=== PATIENT | male | born 1975 | race Caucasian/White ===

== ENCOUNTER 2018-12-15 20:16 | Inpatient (IN) | payer OTHER ==
[~2018-12-15] VITALS: Ht 182.9 cm; Wt 97.5 kg
[2018-12-15 20:40] LABS: BILIRUBIN,URINE NEGATIVE (NEG); CLARITY,URINE CLEAR; COLOR,URINE YELLOW; NITRITE,URINE NEGATIVE (NEG); PH,URINE 5.5; PROTEIN,URINE 30 mg/dL (NEG-TRACE)
[2018-12-15] MEDS ORDERED: TAMSULOSIN 0.4 MG CAP.ER.24H. PO ONE (21:00)
[2018-12-15] MEDS ORDERED: ONDANSETRON PF 4 MG/2 ML VIAL. IV ONE (21:00)
[2018-12-15] MEDS ORDERED: MORPHINE SULFATE 10 MG/ML VIAL. IV ONE (21:00)
[2018-12-15 21:07] LABS: BASO # 0.1 x10^3/uL (0.0-0.2); BASO % 1 % (0-3); EOS # 0.1 x10^3/uL (0.0-0.7); EOS % 1 % (0-3); HEMATOCRIT 45.8 % (39.0-53.0); HEMOGLOBIN 15.3 g/dL (13.0-17.5); LYMPH # 2.7 x10^3/uL (1.0-4.8); LYMPH % 23 % (24-48); MEAN CORPUSCULAR HEMOGLOBIN 29 pg (25-35); MEAN CORPUSCULAR HGB CONC 33 g/dL (31-37); MEAN CORPUSCULAR VOLUME 86 fL (79-100); MONO # 0.8 x10^3/uL (0.0-1.1); MONO % 7 % (0-9); NEUT # 7.7 x10^3uL (1.8-7.7); NEUT % 68 % (31-73); PLATELET COUNT 296 x10^3/uL (140-400); RED BLOOD COUNT 5.33 x10^6/uL (4.30-5.70); RED CELL DISTRIBUTION WIDTH 13.9 % (11.5-14.5); WHITE BLOOD COUNT 11.4 x10^3/uL (4.0-11.0)
[2018-12-15 21:16] LABS: CALCIUM 9.3 mg/dL (8.5-10.1); CREATININE 1.3 mg/dL (0.7-1.3); GFR 60.8; POTASSIUM 3.2 mmol/L (3.5-5.1)
--- NOTE | 2018-12-15 21:20 | PHYS DOC ---
Past Medical History Past Medical History: Kidney Stone (RICHARD MADDEN APRN) Past Surgical History: No Surgical History (RICHARD MADDEN APRN) Alcohol Use: None Drug Use: None (RICHARD MADEDN APRN) Adult General Chief Complaint Chief Complaint: FLANK PAIN HPI HPI Patient is a 43 year old male with history of kidney stones who presents to the ED today complaining of 8 out of 10 sharp constant right flank pain with nausea that began this afternoon. Patient denies any hematuria. Denies any vomiting. Denies any urgency frequency dysuria. Patient states this feels like the last time he had a kidney stone approximately 10 years ago. Patient is writhing in pain. (RICHARD MADDEN APRN) Review of Systems Review of Systems Constitutional: Denies fever or chills [] Eyes: Denies change in visual acuity, redness, or eye pain [] HENT: Denies nasal congestion or sore throat [] Respiratory: Denies cough or shortness of breath [] Cardiovascular: No additional information not addressed in HPI [] GI: Reports nausea. Denies abdominal pain, vomiting, bloody stools or diarrhea [] : Reports right flank pain. Denies dysuria or hematuria [] Musculoskeletal: Denies back pain or joint pain [] Integument: Denies rash or skin lesions [] Neurologic: Denies headache, focal weakness or sensory changes [] All other systems were reviewed and found to be within normal limits, except as documented in this note. (RICHARD MADDEN APRN) Current Medications Current Medications Current Medications Medications (Trade) Dose Ordered Sig/Yoli Start Time Stop Time Status Last Admin Dose Admin Hydromorphone HCl (Dilaudid) 1 mg 1X ONCE 12/15/18 22:30 12/15/18 22:31 DC 12/15/18 22:28 1 MG Ketorolac Tromethamine (Toradol 30mg Vial) 30 mg 1X ONCE 12/15/18 21:30 12/15/18 21:31 DC 12/15/18 21:16 30 MG Morphine Sulfate (Morphine Sulfate) 5 mg 1X ONCE 12/15/18 21:00 12/15/18 21:04 DC 12/15/18 21:03 5 MG Ondansetron HCl (Zofran) 4 mg 1X ONCE 12/15/18 21:00 12/15/18 21:04 DC 12/15/18 21:03 4 MG Potassium Chloride (KCl Oral Soln) 40 meq 1X ONCE 12/15/18 21:30 12/15/18 21:31 DC 12/15/18 22:31 40 MEQ Potassium Chloride (Klor-Con) 40 meq 1X ONCE 12/15/18 22:00 12/15/18 22:01 Cancel Sodium Chloride 1,000 ml @ 1,000 mls/hr 1X ONCE 12/15/18 21:30 12/15/18 22:29 DC 12/15/18 21:26 1,000 MLS/HR Tamsulosin HCl (Flomax) 0.4 mg 1X ONCE 12/15/18 21:00 12/15/18 21:04 DC 12/15/18 21:02 0.4 MG (FER ROSE DO) Allergies Allergies Allergies Coded Allergies Type Severity Reaction Last Updated Verified No Known Drug Allergies 12/15/18 No (FER ROSE DO) Physical Exam Physical Exam Constitutional: Well developed, well nourished, no acute distress, non-toxic appearance. [] HENT: Normocephalic, atraumatic, bilateral external ears normal, oropharynx moist, no oral exudates, nose normal. [] Eyes: PERRLA, EOMI, conjunctiva normal, no discharge. [] Neck: Normal range of motion, no tenderness, supple, no stridor. [] Cardiovascular:Heart rate regular rhythm, no murmur [] Lungs & Thorax: Bilateral breath sounds clear to auscultation [] Abdomen: Bowel sounds normal, soft, patient is guarding the right lower quadrant , moderate tenderness on palpation of the right lower quadrant positive psoas sign, positive obturator sign, no masses, no pulsatile masses. [] Skin: Warm, dry, no erythema, no rash. [] Back: No tenderness, no CVA tenderness. [] Extremities: No tenderness, no cyanosis, no clubbing, ROM intact, no edema. [] Neurologic: Alert and oriented X 3, normal motor function, normal sensory function, no focal deficits noted. [] Psychologic: Patient is writhing in pain (MUTUNGA,RICHARD [employer]OR [employer]) Current Patient Data Vital Signs Vital Signs Date Time Temp Pulse Resp B/P (MAP) Pulse Ox O2 Delivery O2 Flow Rate FiO2 12/15/18 22:28 Room Air 12/15/18 22:23 42 227/97 (140) 93 12/15/18 20:41 97.7 21 97.7 (FER ROSE DO) Lab Values Laboratory Tests Test 12/15/18 20:29 12/15/18 20:55 Urine Collection Type Void Urine Color Yellow Urine Clarity Clear Urine pH 5.5 Urine Specific [place] >=1.030 Urine Protein 30 mg/dL (NEG-TRACE) Urine Glucose (UA) Negative mg/dL (NEG) Urine Ketones (Stick) 15 mg/dL (NEG) Urine Blood Trace (NEG) Urine Nitrite Negative (NEG) Urine Bilirubin Negative (NEG) Urine Urobilinogen Dipstick 1.0 mg/dL (0.2 mg/dL) Urine Leukocyte Esterase Negative (NEG) Urine RBC Occ /HPF (0-2) Urine WBC Occ /HPF (0-4) Urine Squamous Epithelial Cells Few /LPF Urine Bacteria 0 /HPF (0-FEW) Urine Hyaline Casts Occasional /HPF Urine Mucus Mod /LPF Urine Opiates Screen Neg (NEG) Urine Methadone Screen Neg (NEG) Urine Barbiturates Neg (NEG) Urine Phencyclidine Screen Neg (NEG) Urine Amphetamine/Methamphetamine Neg (NEG) Urine Benzodiazepines Screen Neg (NEG) Urine Cocaine Screen Neg (NEG) Urine Cannabinoids Screen Neg (NEG) Urine Ethyl Alcohol Neg (NEG) White Blood Count 11.4 x10^3/uL (4.0-11.0) H Red Blood Count 5.33 x10^6/uL (4.30-5.70) Hemoglobin 15.3 g/dL (13.0-17.5) Hematocrit 45.8 % (39.0-53.0) Mean Corpuscular Volume 86 fL (79-100) Mean Corpuscular Hemoglobin 29 pg (25-35) Mean Corpuscular Hemoglobin Concent 33 g/dL (31-37) Red Cell Distribution Width 13.9 % (11.5-14.5) Platelet Count 296 x10^3/uL (140-400) Neutrophils (%) (Auto) 68 % (31-73) Lymphocytes (%) (Auto) 23 % (24-48) L Monocytes (%) (Auto) 7 % (0-9) Eosinophils (%) (Auto) 1 % (0-3) Basophils (%) (Auto) 1 % (0-3) Neutrophils # (Auto) 7.7 x10^3uL (1.8-7.7) Lymphocytes # (Auto) 2.7 x10^3/uL (1.0-4.8) Monocytes # (Auto) 0.8 x10^3/uL (0.0-1.1) Eosinophils # (Auto) 0.1 x10^3/uL (0.0-0.7) Basophils # (Auto) 0.1 x10^3/uL (0.0-0.2) Sodium Level 144 mmol/L (136-145) Potassium Level 3.2 mmol/L (3.5-5.1) L Chloride Level 103 mmol/L (98-107) Carbon Dioxide Level 24 mmol/L (21-32) Anion Gap 17 (6-14) H Blood Urea Nitrogen 13 mg/dL (8-26) Creatinine 1.3 mg/dL (0.7-1.3) Estimated GFR (Cockcroft-Gault) 60.8 BUN/Creatinine Ratio 10 (6-20) Glucose Level 142 mg/dL (70-99) H Calcium Level 9.3 mg/dL (8.5-10.1) Total Bilirubin 1.4 mg/dL (0.2-1.0) H Aspartate Amino Transferase (AST) 15 U/L (15-37) Alanine Aminotransferase (ALT) 25 U/L (16-63) Alkaline Phosphatase 80 U/L (46-116) Total Protein 7.6 g/dL (6.4-8.2) Albumin 4.0 g/dL (3.4-5.0) Albumin/Globulin Ratio 1.1 (1.0-1.7) Lipase 268 U/L (73-393) Ethyl Alcohol Level < 10 mg/dL (0-10) Laboratory Tests 12/15/18 20:55 Laboratory Tests 12/15/18 20:55 (FER ROSE DO) EKG EKG [] (RICHARD MADDEN APRN) Radiology/Procedures Radiology/Procedures [] (RICHARD MADDEN APRN) Course & Med Decision Making Course & Med Decision Making Pertinent Labs and Imaging studies reviewed. (See chart for details) This is a 43-year-old male patient presenting to the ED today with right flank pain with nausea, emesis history of kidney stones. Patient is guarding the right lower quadrant on arrival to the ED. CBC with a WBC of 11.4. CMP with potassium of 3.2, patient was given oral potassium replacement. CT of the abdomen and pelvic was noted for an early acute appendicitis as well as of 0.2 cm kidney stone at the right UVJ. Consulted with Dr. Walker, he requested antibiotics and will check on patient in a.m. Patient admitted under Dr. Shah report to be given in AM by Dr. Fregoso Routine consult placed for urologist. (RICHARD MADDEN APRN) Dragon Disclaimer Dragon Disclaimer This electronic medical record was generated, in whole or in part, using a voice recognition dictation system. (RICHARD MADDEN APRN) Departure Departure Impression: Primary Impression: Acute appendicitis Additional Impression: Kidney stone on right side Disposition: ADMITTED INPATIENT Admitting Physician: Other (Alyssa) (FER ROSE DO) Condition: STABLE Attending Signature Attending Signature I have reviewed the PA/CLIENT CARE SPECIALIST's note and plan of care. I was available for consultation as needed during the patient's visit in the emergency department. I agree with the clinical impression, plan, and disposition. (FER ROSE DO) Problem Qualifiers Primary Impression: Acute appendicitis Acute appendicitis type: unspecified acute appendicitis type Qualified Codes : K35.80 - Unspecified acute appendicitis RICHARD MADDEN APRN Dec 15, 2018 21:20 FER ROSE DO Dec 16, 2018 02:16
[2018-12-15 21:22] LABS: ALBUMIN/GLOBULIN RATIO 1.1 (1.0-1.7); TOTAL BILIRUBIN 1.4 mg/dL (0.2-1.0); TOTAL PROTEIN 7.6 g/dL (6.4-8.2)
[2018-12-15 21:25] LABS: AMPHETAMINE/METHAMPHETAMINE NEG (NEG); BARBITURATES NEG (NEG); BENZODIAZEPINES NEG (NEG); CANNABINOIDS NEG (NEG); COCAINE NEG (NEG); METHADONE NEG (NEG); OPIATES NEG (NEG); PHENCYCLIDINE NEG (NEG)
[2018-12-15] MEDS ORDERED: POTASSIUM CHLORIDE 20 MEQ/15 ML ORAL LIQUID. PO ONE (21:30)
[2018-12-15] MEDS ORDERED: IV NORMAL SALINE 1000ML BAG 1,000 ML IV ONE ×2 (21:30→23:00)
[2018-12-15] MEDS ORDERED: KETOROLAC 30 MG/ML VIAL. IV ONE (21:30)
[2018-12-15 21:31] LABS: BACTERIA,URINE 0 /HPF (0-FEW); HYALINE CASTS, URINE OCCASIONAL /HPF; RBC,URINE OCC /HPF (0-2); SQUAMOUS EPITHELIAL CELL,UR FEW /LPF; WBC,URINE OCC /HPF (0-4)
--- NOTE | 2018-12-15 21:40 | RAD ---
CT Abdomen and Pelvis without contrast History: Right flank pain, history of stones Technique: Noncontrast CT imaging was performed of the abdomen and pelvis. Multiplanar images are reviewed. Exposure: One or more of the following individualized dose reduction techniques were utilized for this examination: 1. Automated exposure control 2. Adjustment of the mA and/or kV according to patient size 3. Use of iterative reconstruction technique. Comparison: None Findings: There is mild right hydroureteronephrosis. There is a small 0.2 cm calculus at the right ureterovesical junction projecting into the urinary bladder lumen. There is no left hydronephrosis. There is no renal calculus. Accurate evaluation of abdominal visceral organs is limited without intravenous contrast. Gallbladder is present without significant intraluminal abnormality by CT. There is no obvious abnormality of the spleen, liver, or pancreas. There is no adrenal nodularity. Accurate evaluation of bowel is limited without oral contrast. There is no significant free air, free fluid, bowel dilatation. As best seen on images 1 58-1 62, distal appendix is slightly dilated about 7 to 8 mm with adjacent mild hazy change of the fat. More proximal appendix is not dilated. Impression: 1. There is mild dilatation of more distal appendix, adjacent mild hazy change of the adjacent fat, mild/early acute distal appendicitis is not excluded by imaging. 2. There is mild right hydroureteronephrosis, small 0.2 cm calculus in the right ureterovesical junction in the urinary bladder lumen. Electronically signed by: Dom Martínez MD (12/15/2018 9:37 PM) [facility]
[2018-12-15] MEDS ORDERED: POTASSIUM CHLORIDE 20 MEQ TABLET.ER. PO ONE (22:00)
[2018-12-15] MEDS ORDERED: HYDROmorphone 2 MG/ML VIAL IV ONE (22:30)
[2018-12-15] MEDS ORDERED: ONDANSETRON PF 4 MG/2 ML VIAL. IV PRN (22:45)
[2018-12-15] MEDS ORDERED: PIPERACILLIN/TAZOBACTAM 3.375 GM in IV NORMAL SALINE 50ML 50 ML IV ONE (23:00)
[2018-12-16 00:40] VITALS: BP 151/76
[2018-12-16] MEDS ORDERED: HYDROmorphone 2 MG/ML VIAL IV ONE (01:00)
[2018-12-16] MEDS: HYDROmorphone 2 MG/ML VIAL IV PRN ×2 (02:58→05:59)
[2018-12-16 03:09] VITALS: BP 151/85
--- NOTE | 2018-12-16 03:52 | NUR ---
Drinks occasionally -- socially. Addendum: 12/16/18 at 0400 by ALISIA BRUCE RN Amended: Links added.
--- NOTE | 2018-12-16 04:00 | NUR ---
The patient, ESPINOZA ANDREW, 43 y/o, M was admitted by IQRA WEEKS MD. Pt. arrived on unit at 2234 with Yocasta at bedside. VSS. Pt. complained of pain and was drowsy but able to answer admission questions. Pt. was given written information regarding hospital policies, unit procedures and contact persons. Valuables were left in pt.'s room. Will continue to monitor. Addendum: 12/16/18 at 0504 by ALISIA BRUCE RN pt. arrived on unit at 34 not 2234
[2018-12-16 05:43] LABS: BASO % 0 % (0-3); EOS % 0 % (0-3); HEMATOCRIT 44.4 % (39.0-53.0); HEMOGLOBIN 14.5 g/dL (13.0-17.5); LYMPH # 0.6 x10^3/uL (1.0-4.8); LYMPH % 5 % (24-48); MEAN CORPUSCULAR HEMOGLOBIN 28 pg (25-35); MEAN CORPUSCULAR HGB CONC 33 g/dL (31-37); MEAN CORPUSCULAR VOLUME 87 fL (79-100); MONO # 0.4 x10^3/uL (0.0-1.1); MONO % 3 % (0-9); NEUT # 10.3 x10^3uL (1.8-7.7); NEUT % 91 % (31-73); PLATELET COUNT 236 x10^3/uL (140-400); RED BLOOD COUNT 5.12 x10^6/uL (4.30-5.70); RED CELL DISTRIBUTION WIDTH 13.6 % (11.5-14.5); WHITE BLOOD COUNT 11.3 x10^3/uL (4.0-11.0)
[2018-12-16] MEDS ORDERED: PIPERACILLIN/TAZOBACTAM 3.375 GM in IV NORMAL SALINE 50ML 50 ML IV SCH (06:00)
[2018-12-16 06:07] LABS: CALCIUM 8.8 mg/dL (8.5-10.1); CREATININE 1.6 mg/dL (0.7-1.3); GFR 47.9; POTASSIUM 5.7 mmol/L (3.5-5.1)
[2018-12-16 06:25] LABS: PROTHROMBIN TIME PATIENT 13.3 SEC (11.7-14.0)
[2018-12-16 07:00] VITALS: BP 121/72
--- NOTE | 2018-12-16 07:53 | NUR ---
Dr. Valera & Dr. Walker consulted.
--- NOTE | 2018-12-16 08:28 | PDOC2 ---
CONSULT Date of Consult Date of Consult DATE: 12/16/18 TIME: 08:22 Reason for Consult Reason for Consult: appendicitis Referring Physician Referring Physician: Gurjit Identification/Chief Complaint Chief Complaint RLQ abd pain Source Source: Chart review, Patient History of Present Illness Reason for Visit: 43 yo M presents with RLQ abd pain. Pt with multiple previous episodes of similar pain related to kidney stones. He notes some mild nausea secondary to meds. Denies anorexia. Pain nearly resolved this AM. Past Medical History Renal/: Other (kidney stones) Past Surgical History Past Surgical History: No pertinent history Family History Family History: No Significant Social History No ALCOHOL: social Current Problem List Problem List Problems Medical Problems: (1) Acute appendicitis Status: Acute (2) Kidney stone on right side Status: Acute Current Medications Current Medications Current Medications Ketorolac Tromethamine (Toradol 30mg Vial) 30 mg 1X ONCE IV Last administered on 12/15/18 21:16; Start 12/15/18 at 21:30; Stop 12/15/18 at 21:31; Status DC Tamsulosin HCl (Flomax) 0.4 mg 1X ONCE PO Last administered on 12/15/18 21:02 ; Start 12/15/18 at 21:00; Stop 12/15/18 at 21:04; Status DC Morphine Sulfate (Morphine Sulfate) 5 mg 1X ONCE IV Last administered on 21:03; Start 12/15/18 at 21:00; Stop 12/15/18 at 21:04; Status DC Ondansetron HCl (Zofran) 4 mg 1X ONCE IV Last administered on 12/15/18 21:03; Start 12/15/18 at 21:00; Stop 12/15/18 at 21:04; Status DC Sodium Chloride 1,000 ml @ 1,000 mls/hr 1X ONCE IV Last administered on 21:26; Start 12/15/18 at 21:30; Stop 12/15/18 at 22:29; Status DC Potassium Chloride (Klor-Con) 40 meq 1X ONCE PO ; Start 12/15/18 at 22:00; Stop 12/15/18 at 22:01; Status Cancel Potassium Chloride (KCl Oral Soln) 40 meq 1X ONCE PO Last administered on at 22:31; Start 12/15/18 at 21:30; Stop 12/15/18 at 21:31; Status DC Hydromorphone HCl (Dilaudid) 1 mg 1X ONCE IV Last administered on 12/15/18at 22: 28; Start 12/15/18 at 22:30; Stop 12/15/18 at 22:31; Status DC Piperacillin Sod/ Tazobactam Sod 3.375 gm/Sodium Chloride 50 ml @ 100 mls/hr 1X ONCE IV Last administered on 12/15/18at 23:00; Start 12/15/18 at 23:00; Stop 12/15/18 at 23:29; Status DC Ondansetron HCl (Zofran) 4 mg PRN Q8HRS PRN IV NAUSEA/VOMITING 1ST CHOICE Last administered on 12/16/18at 05:59; Start 12/15/18 at 22:45; Stop 12/16/18 at 22:44 Hydromorphone HCl (Dilaudid) 1 mg PRN Q3HRS PRN IV SEVERE PAIN Last administered on 12/16/18at 05:59; Start 12/15/18 at 22:45 Sodium Chloride 1,000 ml @ 125 mls/hr 1X ONCE IV Last administered on at 01:04; Start 12/15/18 at 23:00; Stop 12/16/18 at 06:59; Status DC Piperacillin Sod/ Tazobactam Sod 3.375 gm/Sodium Chloride 50 ml @ 100 mls/hr Q6HRS IV Last administered on 12/16/18at 05:58; Start 12/16/18 at 06:00 Hydromorphone HCl (Dilaudid) 2 mg 1X ONCE IV Last administered on 12/16/18at 00: 40; Start 12/16/18 at 01:00; Stop 12/16/18 at 01:01; Status DC Active Scripts Active Reported No Known Medications Prior To Admisstion (Info) Each 1 Each MC 1X Allergies Allergies: Coded Allergies: No Known Drug Allergies (Unverified , 12/15/18) ROS Gastrointestinal: Yes Abdominal Pain Physical Exam General: Alert, Oriented X3, Cooperative, No acute distress HEENT: Atraumatic Lungs: Normal air movement Abdomen: Soft, No tenderness, No masses Extremities: No clubbing, No cyanosis Skin: No rashes, No breakdown Neuro: Normal speech, Sensation intact Psych/Mental Status: Mental status NL, Mood NL Vitals VITALS Vital Signs Date Time Temp Pulse Resp B/P (MAP) Pulse Ox O2 Delivery O2 Flow Rate FiO2 12/16/18 06:29 18 Nasal Cannula 2.0 12/16/18 03:09 98.8 54 151/85 (107) 92 98.8 Labs Labs Laboratory Tests Test 12/15/18 20:29 12/15/18 20:55 12/16/18 04:50 Urine Collection Type Void Urine Color Yellow Urine Clarity Clear Urine pH 5.5 Urine Specific [place] >=1.030 Urine Protein 30 mg/dL (NEG-TRACE) Urine Glucose (UA) Negative mg/dL (NEG) Urine Ketones (Stick) 15 mg/dL (NEG) Urine Blood Trace (NEG) Urine Nitrite Negative (NEG) Urine Bilirubin Negative (NEG) Urine Urobilinogen Dipstick 1.0 mg/dL (0.2 mg/dL) Urine Leukocyte Esterase Negative (NEG) Urine RBC Occ /HPF (0-2) Urine WBC Occ /HPF (0-4) Urine Squamous Epithelial Cells Few /LPF Urine Bacteria 0 /HPF (0-FEW) Urine Hyaline Casts Occasional /HPF Urine Mucus Mod /LPF Urine Opiates Screen Neg (NEG) Urine Methadone Screen Neg (NEG) Urine Barbiturates Neg (NEG) Urine Phencyclidine Screen Neg (NEG) Urine Amphetamine/Methamphetamine Neg (NEG) Urine Benzodiazepines Screen Neg (NEG) Urine Cocaine Screen Neg (NEG) Urine Cannabinoids Screen Neg (NEG) Urine Ethyl Alcohol Neg (NEG) White Blood Count 11.4 x10^3/uL (4.0-11.0) 11.3 x10^3/uL (4.0-11.0) Red Blood Count 5.33 x10^6/uL (4.30-5.70) 5.12 x10^6/uL (4.30-5.70) Hemoglobin 15.3 g/dL (13.0-17.5) 14.5 g/dL (13.0-17.5) Hematocrit 45.8 % (39.0-53.0) 44.4 % (39.0-53.0) Mean Corpuscular Volume 86 fL (79-100) 87 fL (79-100) Mean Corpuscular Hemoglobin 29 pg (25-35) 28 pg (25-35) Mean Corpuscular Hemoglobin Concent 33 g/dL (31-37) 33 g/dL (31-37) Red Cell Distribution Width 13.9 % (11.5-14.5) 13.6 % (11.5-14.5) Platelet Count 296 x10^3/uL (140-400) 236 x10^3/uL (140-400) Neutrophils (%) (Auto) 68 % (31-73) 91 % (31-73) Lymphocytes (%) (Auto) 23 % (24-48) 5 % (24-48) Monocytes (%) (Auto) 7 % (0-9) 3 % (0-9) Eosinophils (%) (Auto) 1 % (0-3) 0 % (0-3) Basophils (%) (Auto) 1 % (0-3) 0 % (0-3) Neutrophils # (Auto) 7.7 x10^3uL (1.8-7.7) 10.3 x10^3uL (1.8-7.7) Lymphocytes # (Auto) 2.7 x10^3/uL (1.0-4.8) 0.6 x10^3/uL (1.0-4.8) Monocytes # (Auto) 0.8 x10^3/uL (0.0-1.1) 0.4 x10^3/uL (0.0-1.1) Eosinophils # (Auto) 0.1 x10^3/uL (0.0-0.7) 0.0 x10^3/uL (0.0-0.7) Basophils # (Auto) 0.1 x10^3/uL (0.0-0.2) 0.0 x10^3/uL (0.0-0.2) Sodium Level 144 mmol/L (136-145) 143 mmol/L (136-145) Potassium Level 3.2 mmol/L (3.5-5.1) 5.7 mmol/L (3.5-5.1) Chloride Level 103 mmol/L (98-107) 106 mmol/L (98-107) Carbon Dioxide Level 24 mmol/L (21-32) 27 mmol/L (21-32) Anion Gap 17 (6-14) 10 (6-14) Blood Urea Nitrogen 13 mg/dL (8-26) 14 mg/dL (8-26) Creatinine 1.3 mg/dL (0.7-1.3) 1.6 mg/dL (0.7-1.3) Estimated GFR (Cockcroft-Gault) 60.8 47.9 BUN/Creatinine Ratio 10 (6-20) Glucose Level 142 mg/dL (70-99) 140 mg/dL (70-99) Calcium Level 9.3 mg/dL (8.5-10.1) 8.8 mg/dL (8.5-10.1) Total Bilirubin 1.4 mg/dL (0.2-1.0) Aspartate Amino Transf (AST/SGOT) 15 U/L (15-37) Alanine Aminotransferase (ALT/SGPT) 25 U/L (16-63) Alkaline Phosphatase 80 U/L (46-116) Total Protein 7.6 g/dL (6.4-8.2) Albumin 4.0 g/dL (3.4-5.0) Albumin/Globulin Ratio 1.1 (1.0-1.7) Lipase 268 U/L (73-393) Ethyl Alcohol Level < 10 mg/dL (0-10) Prothrombin Time 13.3 SEC (11.7-14.0) Prothromb Time International Ratio 1.0 (0.8-1.1) Activated Partial Thromboplast Time 31 SEC (24-38) Laboratory Tests Test 12/15/18 20:29 12/15/18 20:55 12/16/18 04:50 Urine Collection Type Void Urine Color Yellow Urine Clarity Clear Urine pH 5.5 Urine Specific [place] >=1.030 Urine Protein 30 mg/dL (NEG-TRACE) Urine Glucose (UA) Negative mg/dL (NEG) Urine Ketones (Stick) 15 mg/dL (NEG) Urine Blood Trace (NEG) Urine Nitrite Negative (NEG) Urine Bilirubin Negative (NEG) Urine Urobilinogen Dipstick 1.0 mg/dL (0.2 mg/dL) Urine Leukocyte Esterase Negative (NEG) Urine RBC Occ /HPF (0-2) Urine WBC Occ /HPF (0-4) Urine Squamous Epithelial Cells Few /LPF Urine Bacteria 0 /HPF (0-FEW) Urine Hyaline Casts Occasional /HPF Urine Mucus Mod /LPF Urine Opiates Screen Neg (NEG) Urine Methadone Screen Neg (NEG) Urine Barbiturates Neg (NEG) Urine Phencyclidine Screen Neg (NEG) Urine Amphetamine/Methamphetamine Neg (NEG) Urine Benzodiazepines Screen Neg (NEG) Urine Cocaine Screen Neg (NEG) Urine Cannabinoids Screen Neg (NEG) Urine Ethyl Alcohol Neg (NEG) White Blood Count 11.4 x10^3/uL (4.0-11.0) 11.3 x10^3/uL (4.0-11.0) Red Blood Count 5.33 x10^6/uL (4.30-5.70) 5.12 x10^6/uL (4.30-5.70) Hemoglobin 15.3 g/dL (13.0-17.5) 14.5 g/dL (13.0-17.5) Hematocrit 45.8 % (39.0-53.0) 44.4 % (39.0-53.0) Mean Corpuscular Volume 86 fL (79-100) 87 fL (79-100) Mean Corpuscular Hemoglobin 29 pg (25-35) 28 pg (25-35) Mean Corpuscular Hemoglobin Concent 33 g/dL (31-37) 33 g/dL (31-37) Red Cell Distribution Width 13.9 % (11.5-14.5) 13.6 % (11.5-14.5) Platelet Count 296 x10^3/uL (140-400) 236 x10^3/uL (140-400) Neutrophils (%) (Auto) 68 % (31-73) 91 % (31-73) Lymphocytes (%) (Auto) 23 % (24-48) 5 % (24-48) Monocytes (%) (Auto) 7 % (0-9) 3 % (0-9) Eosinophils (%) (Auto) 1 % (0-3) 0 % (0-3) Basophils (%) (Auto) 1 % (0-3) 0 % (0-3) Neutrophils # (Auto) 7.7 x10^3uL (1.8-7.7) 10.3 x10^3uL (1.8-7.7) Lymphocytes # (Auto) 2.7 x10^3/uL (1.0-4.8) 0.6 x10^3/uL (1.0-4.8) Monocytes # (Auto) 0.8 x10^3/uL (0.0-1.1) 0.4 x10^3/uL (0.0-1.1) Eosinophils # (Auto) 0.1 x10^3/uL (0.0-0.7) 0.0 x10^3/uL (0.0-0.7) Basophils # (Auto) 0.1 x10^3/uL (0.0-0.2) 0.0 x10^3/uL (0.0-0.2) Sodium Level 144 mmol/L (136-145) 143 mmol/L (136-145) Potassium Level 3.2 mmol/L (3.5-5.1) 5.7 mmol/L (3.5-5.1) Chloride Level 103 mmol/L (98-107) 106 mmol/L (98-107) Carbon Dioxide Level 24 mmol/L (21-32) 27 mmol/L (21-32) Anion Gap 17 (6-14) 10 (6-14) Blood Urea Nitrogen 13 mg/dL (8-26) 14 mg/dL (8-26) Creatinine 1.3 mg/dL (0.7-1.3) 1.6 mg/dL (0.7-1.3) Estimated GFR (Cockcroft-Gault) 60.8 47.9 BUN/Creatinine Ratio 10 (6-20) Glucose Level 142 mg/dL (70-99) 140 mg/dL (70-99) Calcium Level 9.3 mg/dL (8.5-10.1) 8.8 mg/dL (8.5-10.1) Total Bilirubin 1.4 mg/dL (0.2-1.0) Aspartate Amino Transf (AST/SGOT) 15 U/L (15-37) Alanine Aminotransferase (ALT/SGPT) 25 U/L (16-63) Alkaline Phosphatase 80 U/L (46-116) Total Protein 7.6 g/dL (6.4-8.2) Albumin 4.0 g/dL (3.4-5.0) Albumin/Globulin Ratio 1.1 (1.0-1.7) Lipase 268 U/L (73-393) Ethyl Alcohol Level < 10 mg/dL (0-10) Prothrombin Time 13.3 SEC (11.7-14.0) Prothromb Time International Ratio 1.0 (0.8-1.1) Activated Partial Thromboplast Time 31 SEC (24-38) Images Images CT scan with right kidney stone at bladder opening, min distal appendiceal dilation and stranding. Assessment/Plan Assessment/Plan RLQ abd pain, favor kidney stone as cause, given hx, PE and labs. Pain appears nearly resolved today. Some K and Cr abnormalities, favor IVF and observation. Agree with urology consultation. Suspect CT findings of appendicitis are subclinical and related to adjacent kidney stone Would not favor operative intervention, given resolution of pain and somewhat concerning K. Thanks for consult! SORIN JOSEPH MD Dec 16, 2018 08:28
[2018-12-16] MEDS ORDERED: KETOROLAC 15 MG/ML VIAL. IV PRN (08:30)
--- NOTE | 2018-12-16 08:33 | PDOC1 ---
History and Physical Date of Admission Date of Admission DATE: 12/16/18 TIME: 08:23 Identification/Chief Complaint Chief Complaint Abdominal pain Source Source: Chart review, Patient History of Present Illness History of Present Illness 43 year old male with history of kidney stones who presents to the ED today complaining of 8 out of 10 sharp constant right flank pain with nausea that began 3/5 in the afternoon. Patient denies any hematuria. Denies any vomiting. Denies any urgency frequency dysuria. Patient states this feels like the last time he had a kidney stone approximately 10 years ago. Patient was writhing in pain, however, his pain improved after toradol, dilaudid and this morning he does not feel significant pain. Seen by surgery and urology. Not felt to be appendicitis with low WBC and pain free. Filter for stone placed if he passes. His cr was up, given IVF for this. Past Medical History Cardiovascular: No pertinent hx Pulmonary: No pertinent hx GI: No pertinent hx Heme/Onc: No pertinent hx Hepatobiliary: No pertinent hx Psych: No pertinent hx Rheumatologic: No pertinent hx Infectious disease: No pertinent hx Renal/: Other (Nephrolithiasis) Endocrine: No pertinent hx Dermatology: No pertinent hx Past Surgical History Past Surgical History: No pertinent history Family History Family History: High Cholestrol, Hypertension Social History Smoke: No ALCOHOL: rare Drugs: None Current Problem List Problem List Problems Medical Problems: (1) Acute appendicitis Status: Acute (2) Kidney stone on right side Status: Acute Current Medications Current Medications Current Medications Ketorolac Tromethamine (Toradol 30mg Vial) 30 mg 1X ONCE IV Last administered on 12/15/18at 21:16; Start 12/15/18 at 21:30; Stop 12/15/18 at 21:31; Status DC Tamsulosin HCl (Flomax) 0.4 mg 1X ONCE PO Last administered on 12/15/18at 21:02 ; Start 12/15/18 at 21:00; Stop 12/15/18 at 21:04; Status DC Morphine Sulfate (Morphine Sulfate) 5 mg 1X ONCE IV Last administered on at 21:03; Start 12/15/18 at 21:00; Stop 12/15/18 at 21:04; Status DC Ondansetron HCl (Zofran) 4 mg 1X ONCE IV Last administered on 12/15/18at 21:03; Start 12/15/18 at 21:00; Stop 12/15/18 at 21:04; Status DC Sodium Chloride 1,000 ml @ 1,000 mls/hr 1X ONCE IV Last administered on at 21:26; Start 12/15/18 at 21:30; Stop 12/15/18 at 22:29; Status DC Potassium Chloride (Klor-Con) 40 meq 1X ONCE PO ; Start 12/15/18 at 22:00; Stop 12/15/18 at 22:01; Status Cancel Potassium Chloride (KCl Oral Soln) 40 meq 1X ONCE PO Last administered on at 22:31; Start 12/15/18 at 21:30; Stop 12/15/18 at 21:31; Status DC Hydromorphone HCl (Dilaudid) 1 mg 1X ONCE IV Last administered on 12/15/18at 22: 28; Start 12/15/18 at 22:30; Stop 12/15/18 at 22:31; Status DC Piperacillin Sod/ Tazobactam Sod 3.375 gm/Sodium Chloride 50 ml @ 100 mls/hr 1X ONCE IV Last administered on 12/15/18at 23:00; Start 12/15/18 at 23:00; Stop 12/15/18 at 23:29; Status DC Ondansetron HCl (Zofran) 4 mg PRN Q8HRS PRN IV NAUSEA/VOMITING 1ST CHOICE Last administered on 12/16/18at 05:59; Start 12/15/18 at 22:45; Stop 12/16/18 at 22:44 Hydromorphone HCl (Dilaudid) 1 mg PRN Q3HRS PRN IV SEVERE PAIN Last administered on 12/16/18at 05:59; Start 12/15/18 at 22:45 Sodium Chloride 1,000 ml @ 125 mls/hr 1X ONCE IV Last administered on at 01:04; Start 12/15/18 at 23:00; Stop 12/16/18 at 06:59; Status DC Piperacillin Sod/ Tazobactam Sod 3.375 gm/Sodium Chloride 50 ml @ 100 mls/hr Q6HRS IV Last administered on 12/16/18at 05:58; Start 12/16/18 at 06:00 Hydromorphone HCl (Dilaudid) 2 mg 1X ONCE IV Last administered on 12/16/18at 00: 40; Start 12/16/18 at 01:00; Stop 12/16/18 at 01:01; Status DC Active Scripts Active Reported No Known Medications Prior To Admisstion (Info) Each 1 Each 1X Allergies Allergies: Coded Allergies: No Known Drug Allergies (Unverified , 12/15/18) ROS General: YES: Appetite; No: Chills, Night Sweats, Fatigue, Malaise, Other PSYCHOLOGICAL ROS: No: Anxiety, Behavioral Disorder, Concentration difficultie , Decreased libido, Depression, Disorientation, Hallucinations, Hostility, Irritablity, Memory difficulties, Mood Swings, Obsessive thoughts, Physical abuse, Sexual abuse, Sleep disturbances, Suicidal ideation, Other Eyes: No Blurry vision, No Decreased vision, No Double vision, No Dry eyes, No Excessive tearing, No Eye Pain, No Itchy Eyes, No Loss of vision, No Photophobia , No Scotomata, No Uses contacts, No Uses glasses, No Other HEENT: No: Heacaches, Visual Changes, Hearing change, Nasal congestion, Nasal discharge, Oral lesions, Sinus pain, Sore Throat, Epistaxis, Sneezing, Snoring, Tinnitus, Vertigo, Vocal changes, Other ALLERGY AND IMMUNOLOGY: No: Hives, Insect Bite Sensitivity, Itchy/Watery Eyes, Nasal Congestion, Post Nasal Drip, Seasonal Allergies, Other Hematological and Lymphatic: No: Bleeding Problems, Blood Clots, Blood Transfusions, Brusing, Night Sweats, Pallor, Swollen Lymph Nodes, Other ENDOCRINE: No: Breast Changes, Galactorrhea, Hair Pattern Changes, Hot Flashes , Malaise/lethargy, Mood Swings, Palpitations, Polydipsia/polyuria, Skin Changes , Temperature Intolerance, Unexpected Weight Changes, Other Breast: No New/Changing Breast Lumps, No Nipple changes, No Nipple discharge, No Other Respiratory: YES: Shortness of breath; No: Cough, Hemoptysis, Orthopnea, Pleuritic Pain, SOB with excertion, Sputum Changes, Stridor, Tachypnea, Wheezing, Other Cardiovascular: No Chest Pain, No Palpitations, No Orthopnea, No Paroxysmal Noc. Dyspnea, No Edema, No Lt Headedness, No Other Gastrointestinal: Yes Nausea, Yes Abdominal Pain; No Vomiting, No Diarrhea, No Constipation, No Melena, No Hematochezia, No Other Genitourinary: YES Dysuria, YES Hematuria; No Frequency, No Incontinence, No Retention, No Discharge, No Urgency, No Pain, No Flank Pain, No Other, No , No , No , No , No , No , No Musculoskeletal: No Gait Disturbance, No Joint Pain, No Joint Stiffness, No Joint Swelling, No Muscle Pain, No Muscular Weakness, No Pain In:, No Swelling In:, No Other Neurological: No Behavorial Changes, No Bowel/Bladder ControlChng, No Confusion , No Dizziness, No Gait Disturbance, No Headaches, No Impaired Coord/balance, No Memory Loss, No Numbness/Tingling, No Seizures, No Speech Problems, No Tremors, No Visual Changes, No Weakness, No Other Skin: No Dry Skin, No Eczema, No Hair Changes, No Lumps, No Mole Changes, No Mottling, No Nail Changes, No Pruritus, No Rash, No Skin Lesion Changes, No Other, No Acne Physical Exam General: Alert, Oriented X3, Cooperative, No acute distress HEENT: Atraumatic, PERRLA, EOMI, Mucous membr. moist/pink Lungs: Clear to auscultation, Normal air movement Heart: S1S2, RRR, no gallops, no murmurs Abdomen: Normal bowel sounds, Soft, No tenderness, No hepatosplenomegaly, No masses Male Genitals Exam: normal genitalia, normal prostate Extremities: No clubbing, No cyanosis, No edema, Normal pulses, No tenderness/ swelling Skin: No rashes, No breakdown, No significant lesion Neuro: Normal gait, Normal speech, Strength at 5/5 X4 ext, Normal tone, Sensation intact, Cranial nerves 3-12 NL, Reflexes 2+ Psych/Mental Status: Mental status NL, Mood NL Vitals Vitals Vital Signs Date Time Temp Pulse Resp B/P (MAP) Pulse Ox O2 Delivery O2 Flow Rate FiO2 12/16/18 06:29 18 Nasal Cannula 2.0 12/16/18 03:09 98.8 54 151/85 (107) 92 98.8 Labs Labs Laboratory Tests Test 12/15/18 20:29 12/15/18 20:55 12/16/18 04:50 Urine Collection Type Void Urine Color Yellow Urine Clarity Clear Urine pH 5.5 Urine Specific [place] >=1.030 Urine Protein 30 mg/dL (NEG-TRACE) Urine Glucose (UA) Negative mg/dL (NEG) Urine Ketones (Stick) 15 mg/dL (NEG) Urine Blood Trace (NEG) Urine Nitrite Negative (NEG) Urine Bilirubin Negative (NEG) Urine Urobilinogen Dipstick 1.0 mg/dL (0.2 mg/dL) Urine Leukocyte Esterase Negative (NEG) Urine RBC Occ /HPF (0-2) Urine WBC Occ /HPF (0-4) Urine Squamous Epithelial Cells Few /LPF Urine Bacteria 0 /HPF (0-FEW) Urine Hyaline Casts Occasional /HPF Urine Mucus Mod /LPF Urine Opiates Screen Neg (NEG) Urine Methadone Screen Neg (NEG) Urine Barbiturates Neg (NEG) Urine Phencyclidine Screen Neg (NEG) Urine Amphetamine/Methamphetamine Neg (NEG) Urine Benzodiazepines Screen Neg (NEG) Urine Cocaine Screen Neg (NEG) Urine Cannabinoids Screen Neg (NEG) Urine Ethyl Alcohol Neg (NEG) White Blood Count 11.4 x10^3/uL (4.0-11.0) 11.3 x10^3/uL (4.0-11.0) Red Blood Count 5.33 x10^6/uL (4.30-5.70) 5.12 x10^6/uL (4.30-5.70) Hemoglobin 15.3 g/dL (13.0-17.5) 14.5 g/dL (13.0-17.5) Hematocrit 45.8 % (39.0-53.0) 44.4 % (39.0-53.0) Mean Corpuscular Volume 86 fL (79-100) 87 fL (79-100) Mean Corpuscular Hemoglobin 29 pg (25-35) 28 pg (25-35) Mean Corpuscular Hemoglobin Concent 33 g/dL (31-37) 33 g/dL (31-37) Red Cell Distribution Width 13.9 % (11.5-14.5) 13.6 % (11.5-14.5) Platelet Count 296 x10^3/uL (140-400) 236 x10^3/uL (140-400) Neutrophils (%) (Auto) 68 % (31-73) 91 % (31-73) Lymphocytes (%) (Auto) 23 % (24-48) 5 % (24-48) Monocytes (%) (Auto) 7 % (0-9) 3 % (0-9) Eosinophils (%) (Auto) 1 % (0-3) 0 % (0-3) Basophils (%) (Auto) 1 % (0-3) 0 % (0-3) Neutrophils # (Auto) 7.7 x10^3uL (1.8-7.7) 10.3 x10^3uL (1.8-7.7) Lymphocytes # (Auto) 2.7 x10^3/uL (1.0-4.8) 0.6 x10^3/uL (1.0-4.8) Monocytes # (Auto) 0.8 x10^3/uL (0.0-1.1) 0.4 x10^3/uL (0.0-1.1) Eosinophils # (Auto) 0.1 x10^3/uL (0.0-0.7) 0.0 x10^3/uL (0.0-0.7) Basophils # (Auto) 0.1 x10^3/uL (0.0-0.2) 0.0 x10^3/uL (0.0-0.2) Sodium Level 144 mmol/L (136-145) 143 mmol/L (136-145) Potassium Level 3.2 mmol/L (3.5-5.1) 5.7 mmol/L (3.5-5.1) Chloride Level 103 mmol/L (98-107) 106 mmol/L (98-107) Carbon Dioxide Level 24 mmol/L (21-32) 27 mmol/L (21-32) Anion Gap 17 (6-14) 10 (6-14) Blood Urea Nitrogen 13 mg/dL (8-26) 14 mg/dL (8-26) Creatinine 1.3 mg/dL (0.7-1.3) 1.6 mg/dL (0.7-1.3) Estimated GFR (Cockcroft-Gault) 60.8 47.9 BUN/Creatinine Ratio 10 (6-20) Glucose Level 142 mg/dL (70-99) 140 mg/dL (70-99) Calcium Level 9.3 mg/dL (8.5-10.1) 8.8 mg/dL (8.5-10.1) Total Bilirubin 1.4 mg/dL (0.2-1.0) Aspartate Amino Transf (AST/SGOT) 15 U/L (15-37) Alanine Aminotransferase (ALT/SGPT) 25 U/L (16-63) Alkaline Phosphatase 80 U/L (46-116) Total Protein 7.6 g/dL (6.4-8.2) Albumin 4.0 g/dL (3.4-5.0) Albumin/Globulin Ratio 1.1 (1.0-1.7) Lipase 268 U/L (73-393) Ethyl Alcohol Level < 10 mg/dL (0-10) Prothrombin Time 13.3 SEC (11.7-14.0) Prothromb Time International Ratio 1.0 (0.8-1.1) Activated Partial Thromboplast Time 31 SEC (24-38) Laboratory Tests Test 12/15/18 20:29 12/15/18 20:55 12/16/18 04:50 Urine Collection Type Void Urine Color Yellow Urine Clarity Clear Urine pH 5.5 Urine Specific [place] >=1.030 Urine Protein 30 mg/dL (NEG-TRACE) Urine Glucose (UA) Negative mg/dL (NEG) Urine Ketones (Stick) 15 mg/dL (NEG) Urine Blood Trace (NEG) Urine Nitrite Negative (NEG) Urine Bilirubin Negative (NEG) Urine Urobilinogen Dipstick 1.0 mg/dL (0.2 mg/dL) Urine Leukocyte Esterase Negative (NEG) Urine RBC Occ /HPF (0-2) Urine WBC Occ /HPF (0-4) Urine Squamous Epithelial Cells Few /LPF Urine Bacteria 0 /HPF (0-FEW) Urine Hyaline Casts Occasional /HPF Urine Mucus Mod /LPF Urine Opiates Screen Neg (NEG) Urine Methadone Screen Neg (NEG) Urine Barbiturates Neg (NEG) Urine Phencyclidine Screen Neg (NEG) Urine Amphetamine/Methamphetamine Neg (NEG) Urine Benzodiazepines Screen Neg (NEG) Urine Cocaine Screen Neg (NEG) Urine Cannabinoids Screen Neg (NEG) Urine Ethyl Alcohol Neg (NEG) White Blood Count 11.4 x10^3/uL (4.0-11.0) 11.3 x10^3/uL (4.0-11.0) Red Blood Count 5.33 x10^6/uL (4.30-5.70) 5.12 x10^6/uL (4.30-5.70) Hemoglobin 15.3 g/dL (13.0-17.5) 14.5 g/dL (13.0-17.5) Hematocrit 45.8 % (39.0-53.0) 44.4 % (39.0-53.0) Mean Corpuscular Volume 86 fL (79-100) 87 fL (79-100) Mean Corpuscular Hemoglobin 29 pg (25-35) 28 pg (25-35) Mean Corpuscular Hemoglobin Concent 33 g/dL (31-37) 33 g/dL (31-37) Red Cell Distribution Width 13.9 % (11.5-14.5) 13.6 % (11.5-14.5) Platelet Count 296 x10^3/uL (140-400) 236 x10^3/uL (140-400) Neutrophils (%) (Auto) 68 % (31-73) 91 % (31-73) Lymphocytes (%) (Auto) 23 % (24-48) 5 % (24-48) Monocytes (%) (Auto) 7 % (0-9) 3 % (0-9) Eosinophils (%) (Auto) 1 % (0-3) 0 % (0-3) Basophils (%) (Auto) 1 % (0-3) 0 % (0-3) Neutrophils # (Auto) 7.7 x10^3uL (1.8-7.7) 10.3 x10^3uL (1.8-7.7) Lymphocytes # (Auto) 2.7 x10^3/uL (1.0-4.8) 0.6 x10^3/uL (1.0-4.8) Monocytes # (Auto) 0.8 x10^3/uL (0.0-1.1) 0.4 x10^3/uL (0.0-1.1) Eosinophils # (Auto) 0.1 x10^3/uL (0.0-0.7) 0.0 x10^3/uL (0.0-0.7) Basophils # (Auto) 0.1 x10^3/uL (0.0-0.2) 0.0 x10^3/uL (0.0-0.2) Sodium Level 144 mmol/L (136-145) 143 mmol/L (136-145) Potassium Level 3.2 mmol/L (3.5-5.1) 5.7 mmol/L (3.5-5.1) Chloride Level 103 mmol/L (98-107) 106 mmol/L (98-107) Carbon Dioxide Level 24 mmol/L (21-32) 27 mmol/L (21-32) Anion Gap 17 (6-14) 10 (6-14) Blood Urea Nitrogen 13 mg/dL (8-26) 14 mg/dL (8-26) Creatinine 1.3 mg/dL (0.7-1.3) 1.6 mg/dL (0.7-1.3) Estimated GFR (Cockcroft-Gault) 60.8 47.9 BUN/Creatinine Ratio 10 (6-20) Glucose Level 142 mg/dL (70-99) 140 mg/dL (70-99) Calcium Level 9.3 mg/dL (8.5-10.1) 8.8 mg/dL (8.5-10.1) Total Bilirubin 1.4 mg/dL (0.2-1.0) Aspartate Amino Transf (AST/SGOT) 15 U/L (15-37) Alanine Aminotransferase (ALT/SGPT) 25 U/L (16-63) Alkaline Phosphatase 80 U/L (46-116) Total Protein 7.6 g/dL (6.4-8.2) Albumin 4.0 g/dL (3.4-5.0) Albumin/Globulin Ratio 1.1 (1.0-1.7) Lipase 268 U/L (73-393) Ethyl Alcohol Level < 10 mg/dL (0-10) Prothrombin Time 13.3 SEC (11.7-14.0) Prothromb Time International Ratio 1.0 (0.8-1.1) Activated Partial Thromboplast Time 31 SEC (24-38) Images Images Ct Abd/pelv - 1. There is mild dilatation of more distal appendix, adjacent mild hazy change of the adjacent fat, mild/early acute distal appendicitis is not excluded by imaging. 2. There is mild right hydroureteronephrosis, small 0.2 cm calculus in the right ureterovesical junction in the urinary bladder lumen. VTE Prophylaxis Ordered VTE Prophylaxis Devices: Yes VTE Pharmacological Prophylaxi: Yes Assessment/Plan Assessment/Plan A/P: Right nephrolithiasis - hopefully a small enough stone to pass on its own, will f/u with urology. Serial KUB, strain urine, flomax Appendix inflammation - not appendicitis per general surgery. Will f/u outpatient Hypokalemia - replaced MANUEL - likely from his nephrolithiasis. will give IVF 1 liter LR in addition to what he received Leukocytosis - reactive from kidney stone FEN - General diet PPX - SCDs FULL CODE Was inpatient overnight for early obstructive nephrolithiasis. If he passes the stone today he is feeling better ,would be ok for d/c with outpatient f/u JULIAN VEGAS MD Dec 16, 2018 08:33
--- NOTE | 2018-12-16 08:57 | PDOC2 ---
DIANA GARCIA MARKET INVESTIGATOR 12/16/18 0857: UROLOGY CONSULT Date of Consult Date of Consult DATE: 12/16/18 TIME: 08:50 Identification/Chief Complaint Chief Complaint Kidney stone Source Source: Caregiver, Chart review, Patient History of Present Illness Reason for Visit: Patient is a 43 year old male who presented to the ED last night for severe pain in the right flank and right lower quadrant that waws 8-9/10. A CT scan was done and it was discovered that patient had a 0.2 cm calculus int he right UVJ with mild hydroureteronephrosis.He currently is having no pain or N/V. He also denies dysuria or blood in the urine. This is not his first time having a kidney stone. He has had them two other times, but these came out on their own; they did not require surgery. He has never seen a Urologist for stone management /prevention or any other reason that he can think of. He is otherwise a fairly healthy person with no real medical problems. He does have appendicitis, but General Surgery is not planning on any intervention at this time, thinking this is mainly due to the kidney stone. Currently his pain is at 0/10 with no nausea /vomiting or other associated symptoms. Past Medical History Renal/: Other (kidney stones) Past Surgical History Past Surgical History: No pertinent history Family History Family History: No Significant Social History No ALCOHOL: social Drugs: None Current Problem List Problems: (1) Kidney stone on right side Current Medications Current Medications Current Medications Hydromorphone HCl (Dilaudid) 1 mg 1X ONCE IV Last administered on 12/15/18at 22: 28; Start 12/15/18 at 22:30; Stop 12/15/18 at 22:31; Status DC Hydromorphone HCl (Dilaudid) 1 mg PRN Q3HRS PRN IV SEVERE PAIN Last administered on 12/16/18at 05:59; Start 12/15/18 at 22:45 Hydromorphone HCl (Dilaudid) 2 mg 1X ONCE IV Last administered on 12/16/18at 00: 40; Start 12/16/18 at 01:00; Stop 12/16/18 at 01:01; Status DC Ketorolac Tromethamine (Toradol 15mg Vial) 15 mg PRN Q6HRS PRN IV MILD PAIN; Start 12/16/18 at 08:30; Stop 12/21/18 at 08:29 Ketorolac Tromethamine (Toradol 30mg Vial) 30 mg 1X ONCE IV Last administered on 12/15/18at 21:16; Start 12/15/18 at 21:30; Stop 12/15/18 at 21:31; Status DC Morphine Sulfate (Morphine Sulfate) 5 mg 1X ONCE IV Last administered on at 21:03; Start 12/15/18 at 21:00; Stop 12/15/18 at 21:04; Status DC Ondansetron HCl (Zofran) 4 mg 1X ONCE IV Last administered on 12/15/18at 21:03; Start 12/15/18 at 21:00; Stop 12/15/18 at 21:04; Status DC Ondansetron HCl (Zofran) 4 mg PRN Q8HRS PRN IV NAUSEA/VOMITING 1ST CHOICE Last administered on 12/16/18at 05:59; Start 12/15/18 at 22:45; Stop 12/16/18 at 22:44 Piperacillin Sod/ Tazobactam Sod 3.375 gm/Sodium Chloride 50 ml @ 100 mls/hr 1X ONCE IV Last administered on 12/15/18at 23:00; Start 12/15/18 at 23:00; Stop 12/15/18 at 23:29; Status DC Piperacillin Sod/ Tazobactam Sod 3.375 gm/Sodium Chloride 50 ml @ 100 mls/hr Q6HRS IV Last administered on 12/16/18at 05:58; Start 12/16/18 at 06:00 Potassium Chloride (KCl Oral Soln) 40 meq 1X ONCE PO Last administered on at 22:31; Start 12/15/18 at 21:30; Stop 12/15/18 at 21:31; Status DC Potassium Chloride (Klor-Con) 40 meq 1X ONCE PO ; Start 12/15/18 at 22:00; Stop 12/15/18 at 22:01; Status Cancel Sodium Chloride 1,000 ml @ 125 mls/hr 1X ONCE IV Last administered on at 01:04; Start 12/15/18 at 23:00; Stop 12/16/18 at 06:59; Status DC Sodium Chloride 1,000 ml @ 1,000 mls/hr 1X ONCE IV Last administered on at 21:26; Start 12/15/18 at 21:30; Stop 12/15/18 at 22:29; Status DC Tamsulosin HCl (Flomax) 0.4 mg 1X ONCE PO Last administered on 12/15/18at 21:02 ; Start 12/15/18 at 21:00; Stop 12/15/18 at 21:04; Status DC Allergies Allergies: Coded Allergies: No Known Drug Allergies (Unverified , 12/15/18) ROS Review Of Systems: CONSTITUTIONAL: No fever or chills EYES: No recent changes SKIN: No rash or itching CARDIOVASCULAR: No chest pain, syncope, palpitations, or edema RESPIRATORY: No SOB or cough GASTROINTESTINAL: No nausea, vomiting or abdominal pain NEUROLOGICAL: No headaches or weakness ENDOCRINE: No cold or heat intolerance GENITOURINARY: No urgency or frequency of urination MUSCULOSKELETAL: No back pain or joint pain LYMPHATICS: No enlarged lymph nodes PSYCHIATRIC: No anxiety or depression Physical Exam Physical Exam: General: Pleasant, no acute distress, well groomed Eyes: conjunctiva anicteric, eyes full range of motion ENT: moist oral mucosa, normal dentition Neck: Trachea midline, no masses Respiratory: unlabored breathing, not using accessory muscles, Back: No CVA pain Abdomen: nontender, nondistended, no hepatosplenomegaly, no masses Skin: no rashes or skin lesions on visualized skin Psych: normal mood, affect. Alert and oriented x 3. Vitals VITALS Vital Signs Date Time Temp Pulse Resp B/P (MAP) Pulse Ox O2 Delivery O2 Flow Rate FiO2 12/16/18 07:00 97.9 76 18 121/72 (88) 92 Nasal Cannula 2.0 97.9 Labs Labs Laboratory Tests Test 12/15/18 20:29 12/15/18 20:55 12/16/18 04:50 Urine Collection Type Void Urine Color Yellow Urine Clarity Clear Urine pH 5.5 Urine Specific [place] >=1.030 Urine Protein 30 mg/dL (NEG-TRACE) Urine Glucose (UA) Negative mg/dL (NEG) Urine Ketones (Stick) 15 mg/dL (NEG) Urine Blood Trace (NEG) Urine Nitrite Negative (NEG) Urine Bilirubin Negative (NEG) Urine Urobilinogen Dipstick 1.0 mg/dL (0.2 mg/dL) Urine Leukocyte Esterase Negative (NEG) Urine RBC Occ /HPF (0-2) Urine WBC Occ /HPF (0-4) Urine Squamous Epithelial Cells Few /LPF Urine Bacteria 0 /HPF (0-FEW) Urine Hyaline Casts Occasional /HPF Urine Mucus Mod /LPF Urine Opiates Screen Neg (NEG) Urine Methadone Screen Neg (NEG) Urine Barbiturates Neg (NEG) Urine Phencyclidine Screen Neg (NEG) Urine Amphetamine/Methamphetamine Neg (NEG) Urine Benzodiazepines Screen Neg (NEG) Urine Cocaine Screen Neg (NEG) Urine Cannabinoids Screen Neg (NEG) Urine Ethyl Alcohol Neg (NEG) White Blood Count 11.4 x10^3/uL (4.0-11.0) 11.3 x10^3/uL (4.0-11.0) Red Blood Count 5.33 x10^6/uL (4.30-5.70) 5.12 x10^6/uL (4.30-5.70) Hemoglobin 15.3 g/dL (13.0-17.5) 14.5 g/dL (13.0-17.5) Hematocrit 45.8 % (39.0-53.0) 44.4 % (39.0-53.0) Mean Corpuscular Volume 86 fL (79-100) 87 fL (79-100) Mean Corpuscular Hemoglobin 29 pg (25-35) 28 pg (25-35) Mean Corpuscular Hemoglobin Concent 33 g/dL (31-37) 33 g/dL (31-37) Red Cell Distribution Width 13.9 % (11.5-14.5) 13.6 % (11.5-14.5) Platelet Count 296 x10^3/uL (140-400) 236 x10^3/uL (140-400) Neutrophils (%) (Auto) 68 % (31-73) 91 % (31-73) Lymphocytes (%) (Auto) 23 % (24-48) 5 % (24-48) Monocytes (%) (Auto) 7 % (0-9) 3 % (0-9) Eosinophils (%) (Auto) 1 % (0-3) 0 % (0-3) Basophils (%) (Auto) 1 % (0-3) 0 % (0-3) Neutrophils # (Auto) 7.7 x10^3uL (1.8-7.7) 10.3 x10^3uL (1.8-7.7) Lymphocytes # (Auto) 2.7 x10^3/uL (1.0-4.8) 0.6 x10^3/uL (1.0-4.8) Monocytes # (Auto) 0.8 x10^3/uL (0.0-1.1) 0.4 x10^3/uL (0.0-1.1) Eosinophils # (Auto) 0.1 x10^3/uL (0.0-0.7) 0.0 x10^3/uL (0.0-0.7) Basophils # (Auto) 0.1 x10^3/uL (0.0-0.2) 0.0 x10^3/uL (0.0-0.2) Sodium Level 144 mmol/L (136-145) 143 mmol/L (136-145) Potassium Level 3.2 mmol/L (3.5-5.1) 5.7 mmol/L (3.5-5.1) Chloride Level 103 mmol/L (98-107) 106 mmol/L (98-107) Carbon Dioxide Level 24 mmol/L (21-32) 27 mmol/L (21-32) Anion Gap 17 (6-14) 10 (6-14) Blood Urea Nitrogen 13 mg/dL (8-26) 14 mg/dL (8-26) Creatinine 1.3 mg/dL (0.7-1.3) 1.6 mg/dL (0.7-1.3) Estimated GFR (Cockcroft-Gault) 60.8 47.9 BUN/Creatinine Ratio 10 (6-20) Glucose Level 142 mg/dL (70-99) 140 mg/dL (70-99) Calcium Level 9.3 mg/dL (8.5-10.1) 8.8 mg/dL (8.5-10.1) Total Bilirubin 1.4 mg/dL (0.2-1.0) Aspartate Amino Transf (AST/SGOT) 15 U/L (15-37) Alanine Aminotransferase (ALT/SGPT) 25 U/L (16-63) Alkaline Phosphatase 80 U/L (46-116) Total Protein 7.6 g/dL (6.4-8.2) Albumin 4.0 g/dL (3.4-5.0) Albumin/Globulin Ratio 1.1 (1.0-1.7) Lipase 268 U/L (73-393) Ethyl Alcohol Level < 10 mg/dL (0-10) Prothrombin Time 13.3 SEC (11.7-14.0) Prothromb Time International Ratio 1.0 (0.8-1.1) Activated Partial Thromboplast Time 31 SEC (24-38) Laboratory Tests Test 12/15/18 20:29 12/15/18 20:55 12/16/18 04:50 Urine Collection Type Void Urine Color Yellow Urine Clarity Clear Urine pH 5.5 Urine Specific [place] >=1.030 Urine Protein 30 mg/dL (NEG-TRACE) Urine Glucose (UA) Negative mg/dL (NEG) Urine Ketones (Stick) 15 mg/dL (NEG) Urine Blood Trace (NEG) Urine Nitrite Negative (NEG) Urine Bilirubin Negative (NEG) Urine Urobilinogen Dipstick 1.0 mg/dL (0.2 mg/dL) Urine Leukocyte Esterase Negative (NEG) Urine RBC Occ /HPF (0-2) Urine WBC Occ /HPF (0-4) Urine Squamous Epithelial Cells Few /LPF Urine Bacteria 0 /HPF (0-FEW) Urine Hyaline Casts Occasional /HPF Urine Mucus Mod /LPF Urine Opiates Screen Neg (NEG) Urine Methadone Screen Neg (NEG) Urine Barbiturates Neg (NEG) Urine Phencyclidine Screen Neg (NEG) Urine Amphetamine/Methamphetamine Neg (NEG) Urine Benzodiazepines Screen Neg (NEG) Urine Cocaine Screen Neg (NEG) Urine Cannabinoids Screen Neg (NEG) Urine Ethyl Alcohol Neg (NEG) White Blood Count 11.4 x10^3/uL (4.0-11.0) 11.3 x10^3/uL (4.0-11.0) Red Blood Count 5.33 x10^6/uL (4.30-5.70) 5.12 x10^6/uL (4.30-5.70) Hemoglobin 15.3 g/dL (13.0-17.5) 14.5 g/dL (13.0-17.5) Hematocrit 45.8 % (39.0-53.0) 44.4 % (39.0-53.0) Mean Corpuscular Volume 86 fL (79-100) 87 fL (79-100) Mean Corpuscular Hemoglobin 29 pg (25-35) 28 pg (25-35) Mean Corpuscular Hemoglobin Concent 33 g/dL (31-37) 33 g/dL (31-37) Red Cell Distribution Width 13.9 % (11.5-14.5) 13.6 % (11.5-14.5) Platelet Count 296 x10^3/uL (140-400) 236 x10^3/uL (140-400) Neutrophils (%) (Auto) 68 % (31-73) 91 % (31-73) Lymphocytes (%) (Auto) 23 % (24-48) 5 % (24-48) Monocytes (%) (Auto) 7 % (0-9) 3 % (0-9) Eosinophils (%) (Auto) 1 % (0-3) 0 % (0-3) Basophils (%) (Auto) 1 % (0-3) 0 % (0-3) Neutrophils # (Auto) 7.7 x10^3uL (1.8-7.7) 10.3 x10^3uL (1.8-7.7) Lymphocytes # (Auto) 2.7 x10^3/uL (1.0-4.8) 0.6 x10^3/uL (1.0-4.8) Monocytes # (Auto) 0.8 x10^3/uL (0.0-1.1) 0.4 x10^3/uL (0.0-1.1) Eosinophils # (Auto) 0.1 x10^3/uL (0.0-0.7) 0.0 x10^3/uL (0.0-0.7) Basophils # (Auto) 0.1 x10^3/uL (0.0-0.2) 0.0 x10^3/uL (0.0-0.2) Sodium Level 144 mmol/L (136-145) 143 mmol/L (136-145) Potassium Level 3.2 mmol/L (3.5-5.1) 5.7 mmol/L (3.5-5.1) Chloride Level 103 mmol/L (98-107) 106 mmol/L (98-107) Carbon Dioxide Level 24 mmol/L (21-32) 27 mmol/L (21-32) Anion Gap 17 (6-14) 10 (6-14) Blood Urea Nitrogen 13 mg/dL (8-26) 14 mg/dL (8-26) Creatinine 1.3 mg/dL (0.7-1.3) 1.6 mg/dL (0.7-1.3) Estimated GFR (Cockcroft-Gault) 60.8 47.9 BUN/Creatinine Ratio 10 (6-20) Glucose Level 142 mg/dL (70-99) 140 mg/dL (70-99) Calcium Level 9.3 mg/dL (8.5-10.1) 8.8 mg/dL (8.5-10.1) Total Bilirubin 1.4 mg/dL (0.2-1.0) Aspartate Amino Transf (AST/SGOT) 15 U/L (15-37) Alanine Aminotransferase (ALT/SGPT) 25 U/L (16-63) Alkaline Phosphatase 80 U/L (46-116) Total Protein 7.6 g/dL (6.4-8.2) Albumin 4.0 g/dL (3.4-5.0) Albumin/Globulin Ratio 1.1 (1.0-1.7) Lipase 268 U/L (73-393) Ethyl Alcohol Level < 10 mg/dL (0-10) Prothrombin Time 13.3 SEC (11.7-14.0) Prothromb Time International Ratio 1.0 (0.8-1.1) Activated Partial Thromboplast Time 31 SEC (24-38) Images Images CT ABD/PELVIS: 1. There is mild dilatation of more distal appendix, adjacent mild hazy change of the adjacent fat, mild/early acute distal appendicitis is not excluded by imaging. 2. There is mild right hydroureteronephrosis, small 0.2 cm calculus in the right ureterovesical junction in the urinary bladder lumen. Assessment/Plan Assessment/Plan KUB today to check stone position Start Flomax 0.4 mg 1 tab daily. Nursing to strain urine Possible dismissal later today if continue to feel well. JAMEL MURRAY MD 12/16/18 0928: UROLOGY CONSULT Assessment/Plan Assessment/Plan I have seen patient, reviewed records, and discussed with Dr Correia. Since patient is feeling well and has no fever or significant pain, he may be dismissed. He knows to call office if he has further problems. DIANA GARCIA APRN Dec 16, 2018 08:57 JAMEL MURRAY MD Dec 16, 2018 09:28
[2018-12-16] MEDS ORDERED: TAMSULOSIN 0.4 MG CAP.ER.24H. PO SCH (09:30)
[2018-12-16] MEDS ORDERED: TAMS0.4C97 PO (10:16)
[2018-12-16] MEDS ORDERED: KETO10TA PO (10:16)
[2018-12-16] MEDS ORDERED: IV RINGERS,LACTATED 500ML 1,000 ML IV ONE (10:30)
--- NOTE | 2018-12-16 10:38 | NUR ---
SW following. Discussed with RN, pt is from home with . RN advised no SW needs and anticipates pt will discharge home today with self care/ .
[2018-12-16 10:51] LABS: % BANDS 6 % (0-9); % LYMPHS 6 % (24-48); % MONOS 3 % (0-10); % SEGS 85 % (35-66); PLT ESTIMATE ADEQUATE (ADEQUATE)
[2018-12-16 11:00] VITALS: BP 127/68
--- NOTE | 2018-12-16 11:09 | RAD ---
KUB, 12/16/2018: HISTORY: Check kidney stone The abdominal gas pattern is unremarkable. There is no evidence of organomegaly. The renal regions are largely obscured by overlying bowel. No abnormal abdominal calcifications are seen. The tiny presumed calculus seen at the right UVJ level on yesterday's CT study is not visualized, perhaps due to its small size or interval passage. IMPRESSION: No significant abnormality is detected. Electronically signed by: Dawit Travis MD (12/16/2018 11:05 AM) [facility]
[2018-12-16 11:51] LABS: CALCIUM 8.6 mg/dL (8.5-10.1); CREATININE 1.8 mg/dL (0.7-1.3); GFR 41.8; POTASSIUM 4.2 mmol/L (3.5-5.1)
--- NOTE | 2018-12-16 12:47 | NUR ---
Discharge instruction reviewed with patient, verbalized understanding. Patient has all belongings and was escorted out of hospital by this nurse accompanied by his .
--- NOTE | 2018-12-16 16:53 | PDOC3 ---
Discharge Summary Visit Information Date of Admission: Dec 15, 2018 Date of Discharge: Dec 16, 2018 Admitting Diagnosis: Right nephrolithiasis, MANUEL Final Diagnosis Problems Medical Problems: (1) Acute appendicitis Status: Acute (2) Kidney stone on right side Status: Acute Brief Hospital Course Allergies Allergies Coded Allergies Type Severity Reaction Last Updated Verified No Known Drug Allergies 12/15/18 No Vital Signs Vital Signs Date Time Temp Pulse Resp B/P (MAP) Pulse Ox O2 Delivery O2 Flow Rate FiO2 12/16/18 11:00 98.6 58 18 127/68 (87) 90 Room Air 98.6 12/16/18 07:00 2.0 Lab Results Laboratory Tests Test 12/15/18 20:29 12/15/18 20:55 12/16/18 04:50 12/16/18 10:50 Urine Collection Type Void Urine Color Yellow Urine Clarity Clear Urine pH 5.5 Urine Specific [place] >=1.030 Urine Protein 30 mg/dL (NEG-TRACE) Urine Glucose (UA) Negative mg/dL (NEG) Urine Ketones (Stick) 15 mg/dL (NEG) Urine Blood Trace (NEG) Urine Nitrite Negative (NEG) Urine Bilirubin Negative (NEG) Urine Urobilinogen Dipstick 1.0 mg/dL (0.2 mg/dL) Urine Leukocyte Esterase Negative (NEG) Urine RBC Occ /HPF (0-2) Urine WBC Occ /HPF (0-4) Urine Squamous Epithelial Cells Few /LPF Urine Bacteria 0 /HPF (0-FEW) Urine Hyaline Casts Occasional /HPF Urine Mucus Mod /LPF Urine Opiates Screen Neg (NEG) Urine Methadone Screen Neg (NEG) Urine Barbiturates Neg (NEG) Urine Phencyclidine Screen Neg (NEG) Urine Amphetamine/Methamphetamine Neg (NEG) Urine Benzodiazepines Screen Neg (NEG) Urine Cocaine Screen Neg (NEG) Urine Cannabinoids Screen Neg (NEG) Urine Ethyl Alcohol Neg (NEG) White Blood Count 11.4 x10^3/uL (4.0-11.0) 11.3 x10^3/uL (4.0-11.0) Red Blood Count 5.33 x10^6/uL (4.30-5.70) 5.12 x10^6/uL (4.30-5.70) Hemoglobin 15.3 g/dL (13.0-17.5) 14.5 g/dL (13.0-17.5) Hematocrit 45.8 % (39.0-53.0) 44.4 % (39.0-53.0) Mean Corpuscular Volume 86 fL (79-100) 87 fL (79-100) Mean Corpuscular Hemoglobin 29 pg (25-35) 28 pg (25-35) Mean Corpuscular Hemoglobin Concent 33 g/dL (31-37) 33 g/dL (31-37) Red Cell Distribution Width 13.9 % (11.5-14.5) 13.6 % (11.5-14.5) Platelet Count 296 x10^3/uL (140-400) 236 x10^3/uL (140-400) Neutrophils (%) (Auto) 68 % (31-73) 91 % (31-73) Lymphocytes (%) (Auto) 23 % (24-48) 5 % (24-48) Monocytes (%) (Auto) 7 % (0-9) 3 % (0-9) Eosinophils (%) (Auto) 1 % (0-3) 0 % (0-3) Basophils (%) (Auto) 1 % (0-3) 0 % (0-3) Neutrophils # (Auto) 7.7 x10^3uL (1.8-7.7) 10.3 x10^3uL (1.8-7.7) Lymphocytes # (Auto) 2.7 x10^3/uL (1.0-4.8) 0.6 x10^3/uL (1.0-4.8) Monocytes # (Auto) 0.8 x10^3/uL (0.0-1.1) 0.4 x10^3/uL (0.0-1.1) Eosinophils # (Auto) 0.1 x10^3/uL (0.0-0.7) 0.0 x10^3/uL (0.0-0.7) Basophils # (Auto) 0.1 x10^3/uL (0.0-0.2) 0.0 x10^3/uL (0.0-0.2) Sodium Level 144 mmol/L (136-145) 143 mmol/L (136-145) 142 mmol/L (136-145) Potassium Level 3.2 mmol/L (3.5-5.1) 5.7 mmol/L (3.5-5.1) 4.2 mmol/L (3.5-5.1) Chloride Level 103 mmol/L (98-107) 106 mmol/L (98-107) 105 mmol/L (98-107) Carbon Dioxide Level 24 mmol/L (21-32) 27 mmol/L (21-32) 28 mmol/L (21-32) Anion Gap 17 (6-14) 10 (6-14) 9 (6-14) Blood Urea Nitrogen 13 mg/dL (8-26) 14 mg/dL (8-26) 13 mg/dL (8-26) Creatinine 1.3 mg/dL (0.7-1.3) 1.6 mg/dL (0.7-1.3) 1.8 mg/dL (0.7-1.3) Estimated GFR (Cockcroft-Gault) 60.8 47.9 41.8 BUN/Creatinine Ratio 10 (6-20) Glucose Level 142 mg/dL (70-99) 140 mg/dL (70-99) 99 mg/dL (70-99) Calcium Level 9.3 mg/dL (8.5-10.1) 8.8 mg/dL (8.5-10.1) 8.6 mg/dL (8.5-10.1) Total Bilirubin 1.4 mg/dL (0.2-1.0) Aspartate Amino Transf (AST/SGOT) 15 U/L (15-37) Alanine Aminotransferase (ALT/SGPT) 25 U/L (16-63) Alkaline Phosphatase 80 U/L (46-116) Total Protein 7.6 g/dL (6.4-8.2) Albumin 4.0 g/dL (3.4-5.0) Albumin/Globulin Ratio 1.1 (1.0-1.7) Lipase 268 U/L (73-393) Ethyl Alcohol Level < 10 mg/dL (0-10) Segmented Neutrophils % 85 % (35-66) Band Neutrophils % 6 % (0-9) Lymphocytes % 6 % (24-48) Monocytes % 3 % (0-10) Platelet Estimate Adequate (ADEQUATE) Prothrombin Time 13.3 SEC (11.7-14.0) Prothromb Time International Ratio 1.0 (0.8-1.1) Activated Partial Thromboplast Time 31 SEC (24-38) Laboratory Tests Test 12/15/18 20:29 12/15/18 20:55 12/16/18 04:50 12/16/18 10:50 Urine Collection Type Void Urine Color Yellow Urine Clarity Clear Urine pH 5.5 Urine Specific [place] >=1.030 Urine Protein 30 mg/dL (NEG-TRACE) Urine Glucose (UA) Negative mg/dL (NEG) Urine Ketones (Stick) 15 mg/dL (NEG) Urine Blood Trace (NEG) Urine Nitrite Negative (NEG) Urine Bilirubin Negative (NEG) Urine Urobilinogen Dipstick 1.0 mg/dL (0.2 mg/dL) Urine Leukocyte Esterase Negative (NEG) Urine RBC Occ /HPF (0-2) Urine WBC Occ /HPF (0-4) Urine Squamous Epithelial Cells Few /LPF Urine Bacteria 0 /HPF (0-FEW) Urine Hyaline Casts Occasional /HPF Urine Mucus Mod /LPF Urine Opiates Screen Neg (NEG) Urine Methadone Screen Neg (NEG) Urine Barbiturates Neg (NEG) Urine Phencyclidine Screen Neg (NEG) Urine Amphetamine/Methamphetamine Neg (NEG) Urine Benzodiazepines Screen Neg (NEG) Urine Cocaine Screen Neg (NEG) Urine Cannabinoids Screen Neg (NEG) Urine Ethyl Alcohol Neg (NEG) White Blood Count 11.4 x10^3/uL (4.0-11.0) 11.3 x10^3/uL (4.0-11.0) Red Blood Count 5.33 x10^6/uL (4.30-5.70) 5.12 x10^6/uL (4.30-5.70) Hemoglobin 15.3 g/dL (13.0-17.5) 14.5 g/dL (13.0-17.5) Hematocrit 45.8 % (39.0-53.0) 44.4 % (39.0-53.0) Mean Corpuscular Volume 86 fL (79-100) 87 fL (79-100) Mean Corpuscular Hemoglobin 29 pg (25-35) 28 pg (25-35) Mean Corpuscular Hemoglobin Concent 33 g/dL (31-37) 33 g/dL (31-37) Red Cell Distribution Width 13.9 % (11.5-14.5) 13.6 % (11.5-14.5) Platelet Count 296 x10^3/uL (140-400) 236 x10^3/uL (140-400) Neutrophils (%) (Auto) 68 % (31-73) 91 % (31-73) Lymphocytes (%) (Auto) 23 % (24-48) 5 % (24-48) Monocytes (%) (Auto) 7 % (0-9) 3 % (0-9) Eosinophils (%) (Auto) 1 % (0-3) 0 % (0-3) Basophils (%) (Auto) 1 % (0-3) 0 % (0-3) Neutrophils # (Auto) 7.7 x10^3uL (1.8-7.7) 10.3 x10^3uL (1.8-7.7) Lymphocytes # (Auto) 2.7 x10^3/uL (1.0-4.8) 0.6 x10^3/uL (1.0-4.8) Monocytes # (Auto) 0.8 x10^3/uL (0.0-1.1) 0.4 x10^3/uL (0.0-1.1) Eosinophils # (Auto) 0.1 x10^3/uL (0.0-0.7) 0.0 x10^3/uL (0.0-0.7) Basophils # (Auto) 0.1 x10^3/uL (0.0-0.2) 0.0 x10^3/uL (0.0-0.2) Sodium Level 144 mmol/L (136-145) 143 mmol/L (136-145) 142 mmol/L (136-145) Potassium Level 3.2 mmol/L (3.5-5.1) 5.7 mmol/L (3.5-5.1) 4.2 mmol/L (3.5-5.1) Chloride Level 103 mmol/L (98-107) 106 mmol/L (98-107) 105 mmol/L (98-107) Carbon Dioxide Level 24 mmol/L (21-32) 27 mmol/L (21-32) 28 mmol/L (21-32) Anion Gap 17 (6-14) 10 (6-14) 9 (6-14) Blood Urea Nitrogen 13 mg/dL (8-26) 14 mg/dL (8-26) 13 mg/dL (8-26) Creatinine 1.3 mg/dL (0.7-1.3) 1.6 mg/dL (0.7-1.3) 1.8 mg/dL (0.7-1.3) Estimated GFR (Cockcroft-Gault) 60.8 47.9 41.8 BUN/Creatinine Ratio 10 (6-20) Glucose Level 142 mg/dL (70-99) 140 mg/dL (70-99) 99 mg/dL (70-99) Calcium Level 9.3 mg/dL (8.5-10.1) 8.8 mg/dL (8.5-10.1) 8.6 mg/dL (8.5-10.1) Total Bilirubin 1.4 mg/dL (0.2-1.0) Aspartate Amino Transf (AST/SGOT) 15 U/L (15-37) Alanine Aminotransferase (ALT/SGPT) 25 U/L (16-63) Alkaline Phosphatase 80 U/L (46-116) Total Protein 7.6 g/dL (6.4-8.2) Albumin 4.0 g/dL (3.4-5.0) Albumin/Globulin Ratio 1.1 (1.0-1.7) Lipase 268 U/L (73-393) Ethyl Alcohol Level < 10 mg/dL (0-10) Segmented Neutrophils % 85 % (35-66) Band Neutrophils % 6 % (0-9) Lymphocytes % 6 % (24-48) Monocytes % 3 % (0-10) Platelet Estimate Adequate (ADEQUATE) Prothrombin Time 13.3 SEC (11.7-14.0) Prothromb Time International Ratio 1.0 (0.8-1.1) Activated Partial Thromboplast Time 31 SEC (24-38) Brief Hospital Course Mr. Peña is a 43 year old male with history of kidney stones who presented to the ED 3/5 complaining of 8 out of 10 sharp constant right flank pain with nausea that began 3/5 in the afternoon. Had scant hematuria. Denies any vomiting. Denies any urgency frequency dysuria. Patient states this feels like the last time he had a kidney stone approximately 10 years ago. Patient was writhing in pain, but over 26 hours he managed to pass the stone, had some other issues as below A/P: Right nephrolithiasis - a small enough stone to pass on its own, will f/u with urology. flomax Appendix inflammation - not appendicitis per general surgery. Will f/u outpatient Hypokalemia - replaced MANUEL - likely from his nephrolithiasis. given IVF 1 liter LR in addition to what he received. He will have BMP drawn at urology f/u Leukocytosis - reactive from kidney stone Was inpatient overnight for early obstructive nephrolithiasis. Passed the stone on KUB, is feeling better ,would be ok for d/c with outpatient f/u Greater than 105 minutes spent total on same day admission H&P and discharge including coordinating with both specialists and outpatient f/u. Discharge Information Condition at Discharge: Improved Follow Up: Weeks (2) Disposition/Orders: D/C to Home Scheduled Info (No Known Medications Prior To Admisstion) Each, 1 EACH 1X for none, ( Reported) Entered as Reported by: ALISIA BRUCE on 12/16/18445 Last Action: New Order on 12/16/18445 by ALISIA BRUCE Tamsulosin Hcl (Flomax) 0.4 Mg Cap.er.24h, 0.4 MG PO DAILY for Kidney stone for 7 Days, #7 Prescribed by: JULIAN VEGAS MD on 12/16/18 1016 Scheduled PRN Ketorolac Tromethamine (Ketorolac Tromethamine) 10 Mg Tablet, 10 MG PO PRN Q6- 8HRS PRN for PAIN for 6 Days, #15 Ref 2 Prescribed by: JULIAN VEGAS MD on 12/16/18 1016 JULIAN VEGAS MD Dec 16, 2018 16:53
== END 2018-12-16 12:48 | disposition home or self-care (01) | DRG 694 ==
LOC: ER 20:16 → 4 NORTH 22:39
PROVIDERS: ADMIT Internal Medicine; ATTEND Internal Medicine
DX: N13.2 Hydronephrosis with renal and ureteral calculous obstruction (principal); N17.9 Acute kidney failure, unspecified; K38.9 Disease of appendix, unspecified; E87.6 Hypokalemia; Z87.442 Personal history of urinary calculi; Z82.49 Family history of ischemic heart disease and other diseases of the circulatory system
CPT/HCPCS: 36415; 74018; 74176; 80048; 80053; 80307; 81001; 83690; 85007; 85025; 85610; 85730; 96361; 96365; 96375; G0480; J1170; J1885; J2270; J2405; J2543; J7030; J7120; 99285-25